=== PATIENT | female | born 1990 | race Caucasian/White ===

== ENCOUNTER 2018-05-14 05:42 | Emergency (ER) | END 2018-05-14 08:10 | disposition home or self-care (01) ==

== ENCOUNTER 2018-08-01 12:34 | Day surgery (SDC) | payer OTHER ==
[~2018-08-01] VITALS: Ht 154.9 cm; Wt 88.4 kg
[2018-08-01] VITALS (14 sets, daily range): BP systolic 94–147; BP diastolic 56–83; PULSE 64–94; RESP 14–23; Ht 154.9 cm; Wt 88.4 kg
[~2018-08-01 12:34] MED LIST: CEFAZOLIN 2 GM/50 ML (PMX) 50 ML IVPB ONE; IBUP-1542 PO; SOD CHLORIDE 0.9% 1,000 ML IV SCH; TYL500 PO
[2018-08-01] MEDS ORDERED: BUPIVACAINE 0.5%/EPI (SDV) 30 ML INJ ONE (14:39)
--- NOTE | 2018-08-01 14:49 | PREAC ---
Date/Time of Note Date/Time of Note DATE: 08/01/18 TIME: 14:45 Anesthesia Eval and Record Evaluation Time Pre-Procedure Interview DATE: 08/01/18 TIME: 14:45 Age 28 Sex female NPO: 8 hrs Preoperative diagnosis Cholelithiasis Planned procedure Lap Cholecystectomy Past Medical History Past Medical History: Includes Cardio: Dyslipidemia GI: Morbid obesity Surgery & Anesthesia Issues No known issue Meds Anticoagulation: No Beta Michaela within 24 hr: No Reason Beta Michaela not given: Pt. not on B-Michaela Active Scripts Acetaminophen* (Tylenol*) 500 Mg Tab, 500 MG PO Q4H PRN for MILD PAIN LEVEL 1-3, #30 TAB Prov:VONNIE GARCIA DO 05/14/18 Ibuprofen* (Motrin*) 600 Mg Tab, 600 MG PO Q6H PRN for PAIN AND OR ELEVATED TEMP, #30 TAB Prov:VONNIE GARCIA 05/14/18 Current Medications Sodium Chloride 1,000 ml @ 75 mls/hr [id number] IV ; Start 08/01/18 at 10:00; Stop 08/01/18 at 23:19 Meds reviewed: Yes Allergies Coded Allergies: No Known Drug Allergies (Verified Allergy, Unknown, 05/14/18) Allergies Reviewed: Yes Labs/Studies Labs Reviewed: Reviewed by anesthesiologist test: Negative Studies: ECG Pre-procedure Exam Last vitals Vital Signs Date Temp Pulse Resp B/P (MAP) Pulse Ox O2 O2 Flow FiO2 Time Delivery Rate 08/01/18 97.3 77 16 121/66 98 13:34 (84) Airway: Adequate mouth opening, Adequate thyromental dist Mallampati: Mallampati II Teeth: Normal Lung: Normal Heart: Normal ASA Physical Status ASA physical status: 2 Emergency: None Planned Anesthetic General/MAC: ETT Planned Pain Management Parenteral pain med Pre-operative Attestations Prior to commencing anesthesia and surgery, the patient was re-evaluated, there was verification of: *The patient's identity *The results of appropriate recent lab work and preoperative vital signs *The above evaluation not changing prior to induction *Anesthetic plan, risk benefits, alternative and complications discussed with patient/family; questions answered; patient/family understands, accepts and wishes to proceed. CHARIS KIM MD Aug 01, 2018 14:49
[2018-08-01] MEDS ORDERED: MIDAZOLAM 1 MG/ML 2 ML INJ ONE (14:52)
[2018-08-01] MEDS ORDERED: morphine 2 MG INJ IV PRN (16:30)
[2018-08-01] MEDS ORDERED: ONDANSETRON 4 MG INJ ONE (16:30)
[2018-08-01] MEDS ORDERED: HYDROCODONE/APAP (5/325) TAB PO PRN ×2 (16:30)
[2018-08-01] MEDS ORDERED: LIDOCAINE 2% (SDV) 5 ML INJ ONE (16:30)
[2018-08-01] MEDS ORDERED: NEOSTIGMINE 10 MG INJ ONE (16:30)
[2018-08-01] MEDS ORDERED: ROCURONIUM 50 MG INJ ONE (16:30)
[2018-08-01] MEDS ORDERED: ONDANSETRON 4 MG INJ IV PRN ×2 (16:30→17:00)
[2018-08-01] MEDS ORDERED: PROPOFOL 20 ML ONE (16:30)
[2018-08-01] MEDS ORDERED: GLYCOPYRROLATE 0.4 MG INJ ONE (16:30)
[2018-08-01] MEDS ORDERED: CEFAZOLIN 1 GM INJ ONE (16:34)
--- NOTE | 2018-08-01 16:37 | OPR ---
Date/Time of Note Date/Time of Note DATE: 08/01/18 TIME: 16:32 Operative Report Procedure Date: Aug 01, 2018 Preoperative Diagnosis Cholelithiasis/chronic cholecystitis Postoperative Diagnosis Cholelithiasis/chronic cholecystitis Operation/Procedure Performed Laparoscopic cholecystectomy Surgeon see signature line Compression Molding Machine Tender None Anesthesia Type: general Anesthesiologist: CHARIS KIM MD Estimated Blood Loss: minimal Transfusion none Specimen Gallbladder Grafts/Implants none Complications none Pt Condition Post Procedure: stable Disposition: PACU Indications The patient is a overweight 28-year-old female who presented to the office with a 2-3-month history of intermittent right upper quadrant abdominal pain. The patient had clinical signs and symptoms of biliary colic and chronic cholecystitis which was confirmed via an ultrasound which showed the presence of gallstones. The patient was scheduled for laparoscopic cholecystectomy; possible open as definitive treatment to prevent further sequelae of gallstone disease which include but are not limited to: Gangrenous cholecystitis, choledocholithiasis, gallstone pancreatitis, ascending cholangitis, etc. All risks and benefits of the procedure including but not limited to: Wound infection, excessive bleeding, common bile duct injury, postoperative biliary leak, retained common bile duct stone, injury to intra-abdominal organs, conversion to open procedure, possible need for subsequent surgeries, etc. were all explained to the patient in full detail. She fully understood and wished to proceed with the procedure. Informed consent was therefore obtained. Procedure Description The patient was brought to the operating room and placed supine on the operating table. Bilateral sequential compression devices were placed on both lower extremities. A dose of broad-spectrum perioperative intravenous antibiotics was given. After the induction of smooth general endotracheal anesthesia the patient's abdomen was prepped and draped in the standard surgical fashion. After performance of the surgical timeout a 5 mm incision was made in the inferior umbilicus and a Veress needle was used to access the intra-abdominal cavity atraumatically. Pneumoperitoneum was then obtained and the Veress needle was ex changed for a 5 mm trocar through which a 5 mm laparoscope was placed. Three further working ports were then placed a 12 mm port in the sub-xiphoid region and two 5 mm ports in the right upper quadrant. All port sites were anesthetized with 0.25% Marcaine with epinephrine prior to incision. Diagnostic laparoscopy showed an intrahepatic gallbladder. Using atraumatic graspers the gallbladder was grasped and retracted superiorly and laterally exposing the area of Drake's pouch. There was a large stone near the neck of the gallbladder. Dissection was begun in this area using a combination of blunt dissection and hook electrocautery. The cystic duct was identified as it entered straight into the neck of the gallbladder. There was a lot of dense adhesions and chronic scarring of the cystic duct. It was tediously dissected free of surrounding tissues and clipped proximally and distally x 3 and transected using EndoShears. Dissection was then continued posteriorly. The cystic artery was identified and dissected free of surrounding tissues. It too was clipped proximally and distally x 3 and transected using EndoShears. The gallbladder was then dissected off the liver bed using electrocautery. There was dense fibrosis and scarring of the intrahepatic gallbladder to the liver bed. Once completely free the gallbladder was placed in an Endo Catch bag and withdrawn through the subxiphoid port site and passed off the field as specimen. Hemostasis was then inspected for and noted to be adequate. The abdomen was then irrigated with several liters of warm normal saline and the irrigant returned crystal clear. The fascia of the subxiphoid port site was then reapproximated using an romina-close device. Pneumoperitoneum was then released and all remaining trochars were w ithdrawn under direct vision. The subcutaneous tissues were irrigated with more warm normal saline and further local anesthesia was applied around the skin of the incision sites. The skin was then reapproximated using 4-0 Monocryl sutures in subcuticular fashion. The incisions were cleaned and Dermabond was applied to the incisions and the patient was awoken from anesthesia and transported to the recovery room in stable condition. All counts were correct at the end of the case x 2. VONNIE MAE MD Aug 01, 2018 16:37
[2018-08-01] MEDS ORDERED: FENTAnyl 50 MCG/ML VIAL ONE (16:43)
--- NOTE | 2018-08-01 16:43 | PAC ---
Date/Time of Note Date/Time of Note DATE: 08/01/18 TIME: 16:42 Post-Anesthesia Notes Post-Anesthesia Note Last documented vital signs Vital Signs Date Temp Pulse Resp B/P (MAP) Pulse Ox O2 O2 Flow FiO2 Time Delivery Rate 08/01/18 97.3 77 16 121/66 98 13:34 (84) Activity: WNL Respiratory function: WNL Cardiovascular function: WNL Mental status: Baseline Pain reasonably controlled: Yes Hydration appropriate: Yes Nausea/Vomiting absent: Yes Comments BP:114/56, P;92, Spo2:100%, T:98,8 CHARIS KIM MD Aug 01, 2018 16:43
[2018-08-01] MEDS ORDERED: HYDROmorphONE 1 MG/5 ML IV SYRINGE IV PRN ×2 (17:00)
[2018-08-01] MEDS ORDERED: DIPHENHYDRAMINE 50 MG INJ IV PRN (17:00)
[2018-08-01] MEDS ORDERED: METOCLOPRAMIDE 10 MG INJ IV PRN (17:00)
[2018-08-01] MEDS ORDERED: FENTAnyl 50 MCG/ML VIAL IV PRN (17:00)
[2018-08-01] MEDS ORDERED: MEPERIDINE 25 MG INJ IV PRN (17:00)
== END 2018-08-01 18:38 | disposition home or self-care (01) ==
LOC: SDS 12:34
PROVIDERS: ATTEND Surgery
DX: K80.10 Calculus of gallbladder with chronic cholecystitis without obstruction (principal); E78.5 Hyperlipidemia, unspecified; E66.01 Morbid (severe) obesity due to excess calories; Z68.36 Body mass index [BMI] 36.0-36.9, adult
CPT/HCPCS: 84703; 88304; J0690; J1170; J2250; J2405; J2710; J3010

== ENCOUNTER 2019-01-15 07:28 | Emergency (ER) | payer OTHER ==
[~2019-01-15] VITALS: Ht 154.9 cm; Wt 90.1 kg
[~2019-01-15 07:28] MED LIST changes: +AMOX1TAB10 PO; -CEFAZOLIN 2 GM/50 ML (PMX) 50 ML IVPB ONE; +NAPR-985 PO; +PRED20TA PO; -SOD CHLORIDE 0.9% 1,000 ML IV SCH
[2019-01-15 07:30] VITALS: BP 117/72; PULSE 105; RESP 19; Ht 154.9 cm; Wt 90.1 kg
[2019-01-15] MEDS ORDERED: DEXAMETHASONE 10 MG/ML 1 ML INJ IM ONE (08:00)
[2019-01-15] MEDS ORDERED: IBUPROFEN 800 MG TAB PO ONE (08:00)
== END 2019-01-15 08:23 | disposition home or self-care (01) ==
LOC: FTE 07:28
DX: J03.90 Acute tonsillitis, unspecified (principal); F17.210 Nicotine dependence, cigarettes, uncomplicated; J02.9 Acute pharyngitis, unspecified
CPT/HCPCS: 96372; J1100; Z7502; Z7610